=== PATIENT | female | born 1990 | race Caucasian/White ===

== ENCOUNTER 2019-05-20 21:02 | Emergency (ER) | payer BC ==
[~2019-05-20] VITALS: Ht 170.2 cm; Wt 61.4 kg
[2019-05-20 21:08] VITALS: BP 134/78
[2019-05-20] MEDS ORDERED: TETanus/Pertussis (Acell)/Diphther VAC/PF (Tdap-Adult) 0.5ml syringe IMVAC ONE (21:15)
== END 2019-05-20 22:09 | disposition home or self-care (01) ==
LOC: ER 21:03
DX: S61.201A Unspecified open wound of left index finger without damage to nail, initial encounter (principal); S61.200A Unspecified open wound of right index finger without damage to nail, initial encounter; W45.8XXA Other foreign body or object entering through skin, initial encounter; Y93.89 Activity, other specified; Y92.89 Other specified places as the place of occurrence of the external cause; Y99.8 Other external cause status
CPT/HCPCS: 90471; 90715; 99283